=== PATIENT | female | born 1980 | race Caucasian/White ===

== ENCOUNTER 2017-09-04 16:26 | Inpatient (IN) | END 2017-09-09 19:30 | disposition home or self-care (01) | DRG 203 ==

== ENCOUNTER 2017-10-31 05:41 | Emergency (ER) | END 2017-10-31 08:44 | disposition home or self-care (01) ==

== ENCOUNTER → 2017-10-31 | Emergency (ER) | END | disposition left against medical advice (07) ==

== ENCOUNTER 2017-11-05 21:26 | Emergency (ER) | END 2017-11-06 04:28 | disposition home or self-care (01) ==

== ENCOUNTER 2017-11-07 04:26 | Emergency (ER) | END 2017-11-07 10:50 | disposition home or self-care (01) ==

== ENCOUNTER 2017-11-11 22:35 | Emergency (ER) | END 2017-11-12 00:12 | disposition left against medical advice (07) ==

== ENCOUNTER 2017-12-17 04:08 | Emergency (ER) | END 2017-12-17 06:44 | disposition home or self-care (01) ==

== ENCOUNTER 2017-12-17 18:25 | Emergency (ER) | END 2017-12-17 21:37 | disposition home or self-care (01) ==

== ENCOUNTER 2018-05-22 23:03 | Emergency (ER) | END 2018-05-23 02:45 | disposition home or self-care (01) ==

== ENCOUNTER 2018-07-20 12:10 | Emergency (ER) | END 2018-07-20 12:45 | disposition home or self-care (01) ==

== ENCOUNTER 2018-07-24 19:32 | Emergency (ER) | END 2018-07-24 20:56 | disposition home or self-care (01) ==

== ENCOUNTER 2018-07-28 02:48 | Emergency (ER) | END 2018-07-28 06:28 | disposition home or self-care (01) ==

== ENCOUNTER 2019-02-08 20:20 | Emergency (ER) | payer MEDICAID ==
[~2019-02-08] VITALS: Ht 149.9 cm; Wt 56.0 kg
[~2019-02-08 20:20] MED LIST: ADV50050 INH; ALBU18HF INHALATION; ALBU8.5H8 INH; AMOX1TAB10 PO; AZIT250T PO; CIPR500S2 PO; FAMO-96 PO; IBUP-1542 PO; LORA10TA3 PO; METO10TA92 PO; MONT10TA24 PO; ONDA4TAB13 PO; ONDA4TAB14 PO; PANT40TA3 PO; PRED20TA PO; RTPRO NEB; SUCR1TAB56 PO; TIOT18CA INH; TRAM50TA2 PO
[2019-02-08 20:41] VITALS: Ht 149.9 cm; Wt 56.0 kg
[2019-02-08] MEDS ORDERED: ALBUTEROL 0.5% (NEB) 2.5 MG/0.5 ML AMP INH STA (20:46)
[2019-02-08] MEDS ORDERED: METHYLPREDNISOLONE 125 MG INJ IV STA (20:46)
[2019-02-08] MEDS ORDERED: MAGNESIUM SULFATE 2 GM/50 ML 50 ML IVPB STA (20:46)
[2019-02-08] MEDS ORDERED: IPRATROPIUM (NEB) 0.5 MG/2.5 ML AMP INH STA (20:46)
[2019-02-08] MEDS ORDERED: SOD CHLORIDE 0.9% 1,000 ML IV STA (20:46)
--- NOTE | 2019-02-08 20:56 | ERD ---
ER Documentation Chief Complaint Chief Complaint BILATERAL WHEEZES NOTED, ASTHMA ATTACK, VSS HPI 38-year-old female with past medical history of asthma presenting to the emergency department with complaints of shortness of breath and wheezing for 1 week. She states she has noticed some mild shortness of breath over the past 1 week, but she significantly worsened today. She used home nebulizer treatments and her rescue inhaler today without significant relief, prompting her to present to the ED. She does report prior hospitalization and intubations due to her asthma. She denies any fevers or chills or other symptoms at this time. ROS All systems reviewed and are negative except as per history of present illness. Medications Home Meds Active Scripts Albuterol Sulfate* (Albuterol Sulfate* Neb) 0.083%-3 Ml Neb, 2.5 MG NEB Q4 PRN for SHORTNESS OF BREATH, #30 EA Prov:LINDA MATHUR PA-C 02/08/19 Albuterol Sulfate* (Ventolin HFA*) 18 Gm Hfa.aer.ad, 2 PUFF INHALATION Q4H, #1 INHALER Prov:LINDA MATHUR PA-C 02/08/19 Prednisone* (Prednisone*) 20 Mg Tab, 40 MG PO DAILY for 4 Days, TAB Prov:LINDA MATHUR PA-C 02/08/19 Albuterol Sulfate* (Ventolin HFA*) 18 Gm Hfa.aer.ad, 2 PUFF INHALATION Q4H, #1 INHALER Prov:JOSY CLINE PA-C 07/28/18 Prednisone* (Prednisone*) 20 Mg Tab, 40 MG PO DAILY for 4 Days, TAB Prov:JOSY CLINE PA-C 07/28/18 Pantoprazole* (Protonix*) 40 Mg Tablet.dr, 40 MG PO DAILY, #20 TAB Prov:JOSY CLINE PA-C 07/28/18 Tramadol HCl (Tramadol HCl) 50 Mg Tablet, 50 MG PO Q6 PRN for PAIN, #10 TAB Prov:JAMAAL MARTIN PA-C 07/24/18 Amoxicillin/Potassium Clav (Amox-Clav 875-125 mg Tablet) 875-125 mg Tab, 1 TAB PO BID for 7 Days, #14 TAB Prov:JAMAAL MARTIN PA-C 07/24/18 Ibuprofen* (Motrin*) 600 Mg Tab, 600 MG PO Q6, #15 TAB Prov:LAMIN ALBERTS MD 07/20/18 Prednisone* (Prednisone*) 20 Mg Tab, 40 MG PO DAILY for 5 Days, TAB Prov:LAMIN ALBERTS MD 07/20/18 Azithromycin* (Zithromax*) 250 Mg Tablet, 250 MG PO .ZPACK DIRECTED, #6 TAB TAKE 500 MG (2 TABS) THE FIRST DAY THEN 250 MG (1 TAB) DAYS 2-5 Prov:LAMIN ALBERTS MD 07/20/18 Albuterol Sulfate* (Proair HFA*) 8.5 Gm Hfa.aer.ad, 2 PUFF INH Q6H PRN for WHEEZING AND SOB, #1 INHALER Prov:GABRIEL HOLLOWAY DO 05/23/18 Prednisone* (Prednisone*) 20 Mg Tab, 40 MG PO DAILY for 4 Days, TAB Prov:GABRIEL HOLLOWAY DO 05/23/18 Metoclopramide* (Reglan*) 10 Mg Tablet, 10 MG PO Q6 PRN for NAUSEA AND/OR V OMITING, #10 TAB Prov:JOSY CLINE PA-C 12/17/17 Ondansetron (Ondansetron Odt) 4 Mg Tab.rapdis, 4 MG PO Q6H PRN for NAUSEA AND/OR VOMITING, #10 TAB Prov:LINDA MALLORY 12/17/17 Tramadol HCl (Tramadol HCl) 50 Mg Tablet, 50 MG PO Q4 PRN for PAIN, #20 TAB Prov:LINDA MALLORY 12/17/17 Ondansetron Hcl* (Zofran*) 4 Mg Tab, 4 MG PO Q6H PRN for NAUSEA AND OR VOMITING, #10 TAB Prov:ANDREINA GUERRA MD 11/07/17 Ciprofloxacin (Ciprofloxacin) 500 Mg/5 Ml Aurelia.mc.rec, 500 MG PO BID, #10 TAB Prov:ANDREINA GUERRA MD 11/07/17 Sucralfate* (Carafate*) 1 Gm Tab, 1 GM PO QID PRN for reflux symptoms, #15 TAB Prov:RODNEY ROSE MD 10/31/17 Salmeterol Xinaf-Fluticasone* (Advair*) 500/50 Diskus Inhaler, 1 INH INH BID, #1 INH Prov:MILLIEHildaSOLITARIOROM REGISTERED NURSE NURSERY 09/09/17 Tiotropium Belle* (Spiriva*) 18 Mcg Cap.w.dev, 1 INH INH DAILY for 30 Days, #1 INH Prov:SOLITARIO SKINNERNELL REGISTERED NURSE NURSERY 09/09/17 Montelukast Sodium* (Montelukast Sodium*) 10 Mg Tablet, 10 MG PO HS for 30 Days, #30 TAB Prov:REGLAURAROM REGISTERED NURSE NURSERY 09/09/17 Albuterol Sulfate* (Ventolin HFA*) 18 Gm Hfa.aer.ad, 2 PUFF INHALATION Q4H, #1 INHALER Prov:REGLAURAROM REGISTERED NURSE NURSERY 09/09/17 Albuterol Sulfate* (Proventil* Neb) 0.083% Neb, 2.5 MG NEB Q4 PRN for SHORTNESS OF BREATH, #30 EA Prov:ROM SKINNER REGISTERED NURSE NURSERY 03/10/16 Famotidine* (Pepcid*) 20 Mg Tablet, 20 MG PO BID for 4 Days, TAB Prov:KENDRA SANTOYO PA-C 04/16/15 Reported Medications Loratadine* (Loratadine*) 10 Mg Tablet, 10 MG PO DAILY, #30 TAB 03/08/16 Allergies Allergies: Coded Allergies: acetaminophen (Unverified Allergy, Unknown, SOB, 07/28/18) aspirin (Unverified Allergy, Unknown, 07/28/18) PMhx/Soc History of Surgery: Yes ( X4) Anesthesia Reaction: No Hx Neurological Disorder: No Hx Respiratory Disorders: Yes (ASTHMA) Hx Cardiac Disorders: No Hx Psychiatric Problems: No Hx Miscellaneous Medical Probl: No Hx Alcohol Use: No Hx Substance Use: No Hx Tobacco Use: No FmHx Family History: No diabetes Physical Exam Vitals Vital Signs Date Temp Pulse Resp B/P (MAP) Pulse Ox O2 O2 Flow FiO2 Time Delivery Rate 02/08/19 98.0 102 18 127/73 93 Room Air 23:36 (91) 02/08/19 101 24 94 21 20:56 02/08/19 98.9 126 30 162/92 94 20:41 (115) Physical Exam Const: No acute distress Head: Atraumatic Eyes: Normal Conjunctiva ENT: Normal External Ears, Nose and Mouth. Neck: Full range of motion. No meningismus. Resp: Patient appears to be in respiratory distress. Tachypnea noted. Inspiratory and expiratory wheezing noted to all lung zhou. Cardio: Regular rate and rhythm, no murmurs Skin: No petechiae or rashes Ext: No cyanosis, or edema Neur: Awake and alert Psych: Normal Mood and Affect Results 24 hrs Current Medications Medications Dose Sig/Drea Start Time Status Last (Trade) Ordered Route PRN Stop Time Admin Dose Reason Admin Sodium 1,000 ml @ Q1H STAT 02/08/19 DC 02/08/19 Chloride 1,000 mls/hr IV 20:46 02/08/19 21:19 21:45 Albuterol 15 mg ONCE STAT 02/08/19 DC 02/08/19 (Proventil INH 20:46 02/08/19 20:55 0.5% (Neb)) 20:47 Ipratropium 1 mg ONCE STAT 02/08/19 DC 02/08/19 Belle INH 20:46 02/08/19 20:55 (Atrovent 20:47 0.02% (Neb)) 125 mg ONCE STAT 02/08/19 DC 02/08/19 Methylprednis IV 20:46 02/08/19 21:19 olone Sodium 20:47 Succinate (Solu-Medrol) Magnesium 50 ml @ 25 ONCE STAT 02/08/19 DC 02/08/19 Sulfate mls/hr IVPB 20:46 02/08/19 21:19 22:45 Ondansetron 4 mg ONCE STAT 02/08/19 DC HCl (Zofran IV 21:28 02/08/19 Inj) 21:29 [place] [id number] Radiology Main Line: [phone] DIAGNOSTIC IMAGING REPORT Patient: BULMARO HUSAIN : 1980 Age: 38 Sex: F MR #: [id number] DOS: 02/08/192045 Ordering MD: LINDA MATHUR PA-C Location: [facility] Room/Bed: PROCEDURE: XR Chest. CLINICAL INDICATION: Asthma exacerbation TECHNIQUE: Single frontal view of the chest was obtained. COMPARISON: 05/22/2018 FINDINGS: The cardiomediastinal silhouette is normal size. Pulmonary vasculature is within normal limits. The lungs are clear. No signs of pleural fluid or pneumothorax are seen. The osseous structures and soft tissues are unremarkable. IMPRESSION: No evidence for active cardiopulmonary disease. RPTAT: HBST .Sivakumar Mcbride MD, MD Date Time Electronically viewed and signed by .Sivakumar Mcbride MD, MD on 02/08/2019 21:36 .T/ CC: LINDA MATHUR PA-C [id number] Procedures/MDM 38-year-old female with prior history of asthma presenting with significant shortness of breath. Examination revealed respiratory distress and wheezing auscultated to all lung zhou. Patient was immediately placed into a stretcher and IV line was established. She was administered 1 L normal saline, 125 mg Solu-Medrol. Respiratory therapy was emergently consulted and continuous albuterol/ipratropium nebulizer treatment was administered. Patient was continuously monitored and serial examinations revealed improvement of her symptoms. Patient reexamined in approximately 2128 and was vomiting. 4 mg IV Zofran was ordered. Patient's respiratory status has improved. Patient's respiratory status has stabilized while in the department and is appropriate for outpatient work up. Patient was offered admission to the hospital, but is insisting to be discharged home with outpatient management at this time. Exam and work up not consistent w/ impending respiratory failure or cardiovascular collapse. No evidence of life-threatening pathology at time of discharge. Pt/family in agreement with discharge plan/diagnosis. Pt/family advised to return immediately with any new or worsening symptoms. Follow-up with primary care physician within the next 1-2 days. Departure Diagnosis: Primary Impression: Asthma with acute exacerbation Asthma severity: unspecified severity Asthma persistence: unspecified Qualified Codes: J45.901 - Unspecified asthma with (acute) exacerbation Condition: Fair Patient Instructions: Asthma, Acute (Adult) Additional Instructions: Muchas esme por [facility] para barriga servicio. Esperamos que en barriga visita a la delio de emergencia barriga problema medico haya sido solucionado y que se sienta mucho mejor. Para estar seguros que barriga mejoria sigue en proceso, le pedimos el favor de hacer hetal domi de seguimiento medico con barriga doctor primario en los proximos 2-4 tillman. Lleve con usted estos documentos y las medicinas recetadas. Si aurelia sintomas empeoran, NO SE ESPERE, por favor regrese a delio de emergencia INMEDIATAMENTE. En imka que usted no tenga un mdico de atencin primaria: Llame al mdico o clnica comunitaria de referencia que aparece abajo anjel las horas de consultorio para hacer hetal domi para que le vean. CLINICAS: [facility] [phone] [address] [facility] [phone] [address] [facility] [phone] [address] [facility]. [facility] [phone] [facility] [phone] [address] [facility]. [phone] LINDA SOLIS PA-C Feb 08, 2019 20:56
[2019-02-08] MEDS ORDERED: ONDANSETRON 4 MG INJ IV STA (21:28)
[2019-02-08] MEDS ORDERED: PRED20TA PO (22:12)
[2019-02-08] MEDS ORDERED: ALBU2.5V3 NEB (22:12)
[2019-02-08] MEDS ORDERED: ALBU18HF INHALATION (22:12)
[2019-02-08 23:36] VITALS: BP 127/73; PULSE 102; RESP 18
== END 2019-02-08 23:39 | disposition home or self-care (01) ==
LOC: FTE 20:20
DX: J45.901 Unspecified asthma with (acute) exacerbation (principal)
CPT/HCPCS: 71045; 94644; 96374; 96375; J2930; J3475; J7030; Z7502; Z7610